=== PATIENT | female | born 1965 ===

== ENCOUNTER 2020-09-17 07:27 | Inpatient (IN) | payer OTHER ==
[2020-09-18] MEDS ORDERED: AMOX1TAB5 PO (12:02)
== END 2020-09-18 12:57 | disposition home or self-care (01) | DRG 395 ==
LOC: AMB-ENDOS 07:27 → SURG 15:02 → O/R 15:02 → SURG 15:05
PROVIDERS: ADMIT Colon & Rectal Surgery; ATTEND Colon & Rectal Surgery
PROC: 0DJD8ZZ Inspection of Lower Intestinal Tract, Via Natural or Artificial Opening Endoscopic (ICD-10-PCS; principal; 2020-09-17)
PROC: 0D7P8ZZ Dilation of Rectum, Via Natural or Artificial Opening Endoscopic (ICD-10-PCS; 2020-09-17)
DX: K91.858 Other complications of intestinal pouch (principal); K62.4 Stenosis of anus and rectum

== ENCOUNTER 2022-01-30 09:46 | Inpatient (IN) | payer OTHER ==
[~2022-01-30] VITALS: Ht 165.1 cm; Wt 72.6 kg
[~2022-01-30 09:46] MED LIST: AMOX1TAB5 PO
[2022-01-30] MEDS ORDERED: XOPENEX0.63 MG/3 (09:58)
[2022-01-30] MEDS ORDERED: LEVOTHYROXINE25 MCG PO (09:58)
[2022-01-30] MEDS ORDERED: NP THYROID60 MG (09:58)
[2022-01-30] MEDS ORDERED: TOPAMAX200 MG (09:59)
== END 2022-02-07 17:51 | disposition home or self-care (01) | DRG 388 ==
LOC: ER 09:46 → MEDJ 17:21
PROVIDERS: ADMIT Colon & Rectal Surgery; ATTEND Colon & Rectal Surgery
PROC: 4A12X4Z Monitoring of Cardiac Electrical Activity, External Approach (ICD-10-PCS; 2022-01-30)
PROC: BW21YZZ Computerized Tomography (CT Scan) of Abdomen and Pelvis using Other Contrast (ICD-10-PCS; 2022-01-30)
PROC: 0D7N8DZ Dilation of Sigmoid Colon with Intraluminal Device, Via Natural or Artificial Opening Endoscopic (ICD-10-PCS; principal; 2022-02-01)
DX: K56.699 Other intestinal obstruction unspecified as to partial versus complete obstruction (principal); U07.1 COVID-19; R10.13 Epigastric pain; K64.1 Second degree hemorrhoids; K62.4 Stenosis of anus and rectum; I10 Essential (primary) hypertension; E03.8 Other specified hypothyroidism